=== PATIENT | male | born 1940 | race Caucasian/White ===

== ENCOUNTER 2019-08-22 11:29 | Day surgery (SDC) | payer MEDICARE ==
[~2019-08-22] VITALS: Ht 171.4 cm; Wt 89.8 kg
[2019-08-22 12:00] VITALS: BP 150/79
[2019-08-22] MEDS ORDERED: LACTATED RINGERS 1,000 ML IV SCH (12:05)
[2019-08-22] MEDS ORDERED: amlodipine PO (12:10)
[2019-08-22] MEDS ORDERED: lisinopril PO (12:10)
[2019-08-22] MEDS ORDERED: FINA5TAB4 PO (12:26)
[2019-08-22] MEDS ORDERED: GLUCOSAMINE PO (12:26)
[2019-08-22] MEDS ORDERED: VITAMIN C PO (12:26)
[2019-08-22] MEDS ORDERED: PRAV20TA2 PO (12:26)
[2019-08-22] MEDS ORDERED: SLEEP AID PO (12:26)
[2019-08-22] MEDS ORDERED: MULTIVITAMIN PO (12:26)
[2019-08-22] MEDS ORDERED: LEVOTHYROXINE PO (12:26)
[2019-08-22] MEDS ORDERED: VITAMIN D PO (12:26)
[2019-08-22] MEDS ORDERED: CO Q10 PO (12:26)
[2019-08-22 12:39] LABS: ALANINE AMINOTRANSFERASE 31 U/L (12-78); ALBUMIN 3.7 g/dL (3.4-5.0); ANION GAP 8 mmol/L (5-15); CALCIUM 9.1 mg/dL (8.5-10.1); CHLORIDE 111 mmol/L (98-107); CREATININE 1.27 mg/dL (0.7-1.3)
[2019-08-22 12:42] LABS: ALKALINE PHOSPHATASE 65 U/L (45-117); BILIRUBIN,TOTAL 0.8 mg/dL (0.2-1.0); TOTAL PROTEIN 7.4 g/dL (6.4-8.2)
[2019-08-22] MEDS ORDERED: EPINEPHRINE TOPICAL SOLN 1 MG/ML, 30ML ONE (13:29)
[2019-08-22] MEDS ORDERED: FENTANYL PF 100 MCG/2ML ONE (13:55)
[2019-08-22] MEDS ORDERED: LABETALOL 5MG/ML, 20ML IV PRN (14:00)
[2019-08-22] MEDS ORDERED: FENTANYL PF 100 MCG/2ML IV PRN (14:00)
[2019-08-22] MEDS ORDERED: hydrALAzine 20 MG/ML, 1ML IV PRN (14:00)
[2019-08-22] MEDS ORDERED: HYDROmorphone 2 MG/ML, 1ML IVPush PRN (14:00)
[2019-08-22] MEDS ORDERED: ALBUTEROL SULFATE 2.5 MG/3 ML NPPB PRN (14:00)
[2019-08-22] MEDS ORDERED: OXYcodone 5 MG/5 ML ORAL.SOL UDC PO PRN (14:00)
[2019-08-22] MEDS ORDERED: HALOPERIDOL 5 MG/ML IV PRN (14:00)
[2019-08-22] MEDS ORDERED: PROMETHAZINE 25 MG/ML, 1ML IV PRN (14:00)
[2019-08-22] MEDS ORDERED: ROCURONIUM 10MG/ML,5ML ONE (15:44)
[2019-08-22] MEDS ORDERED: PROPOFOL 10 MG/ML, 20ML ONE (15:44)
[2019-08-22] MEDS ORDERED: PROPOFOL 10 MG/ML, 50ML ONE (15:44)
[2019-08-22] MEDS ORDERED: CEFAZOLIN 1,000 MG ONE (15:44)
== END 2019-08-22 16:20 | disposition home or self-care (01) ==
LOC: OR 11:29
PROVIDERS: ATTEND Specialist
DX: J38.01 Paralysis of vocal cords and larynx, unilateral (principal); R49.0 Dysphonia; E03.9 Hypothyroidism, unspecified; E21.3 Hyperparathyroidism, unspecified; J34.2 Deviated nasal septum; Z85.850 Personal history of malignant neoplasm of thyroid; Z92.3 Personal history of irradiation; Z88.8 Allergy status to other drugs, medicaments and biological substances; Z88.0 Allergy status to penicillin; Z87.891 Personal history of nicotine dependence; Z79.899 Other long term (current) drug therapy; Z98.890 Other specified postprocedural states
CPT/HCPCS: 31570; 36415; 80053; 93005; C1878; J0690; J2704; J3010; J7120